=== PATIENT | male | born 1950 | race Caucasian/White ===

== ENCOUNTER → 2017-03-07 | Outpatient (CLI) | payer BC ==
--- NOTE | 2017-03-07 11:49 | RADIOLOGY REPORT PS360 ---
KNEE-3 VIEWS-RT COMPARISON: None HISTORY: Generalized right knee pain TECHNIQUE: AP lateral and oblique views FINDINGS: There is mild joint space narrowing medially. There is narrowing of patellofemoral space with spurring of the superior and inferior borders of the patella. There is no definite effusion. There is minimal osteophytic spurring of the posterior tibial plateau best appreciated on the lateral projection. The soft tissues are normal. IMPRESSION: Mild to moderate degenerative changes of the knee primarily involving medial joint space
== END ==
LOC: RAD 11:15
DX: M25.561 Pain in right knee (principal)